=== PATIENT | female | born 1960 | race Caucasian/White ===

== ENCOUNTER 2018-12-11 23:48 | Emergency (ER) | payer OTHER ==
[~2018-12-11] VITALS: Ht 160 cm; Wt 50.0 kg
[2018-12-12] MEDS ORDERED: LEVO50 PO (00:13)
[2018-12-12] MEDS ORDERED: NIFE30TA98 PO (00:13)
[2018-12-12] MEDS ORDERED: SEVEC800 PO (00:13)
[2018-12-12] MEDS ORDERED: TRAZ-252 PO (00:13)
[2018-12-12] MEDS ORDERED: ASPI-1182 PO (00:13)
[2018-12-12] MEDS ORDERED: LOPE1LIQ88 PO (00:13)
[2018-12-12] MEDS ORDERED: VITAD1000 PO (00:13)
[2018-12-12 00:24] LABS: GLUCOSE,POINT OF CARE 202 MG/DL (70-110)
[2018-12-12 00:50] LABS: BASOPHILS % (AUTO) 0.2 % (0.0-2.0); EOSINOPHILS % (AUTO) 0 % (1.0-6.0); HEMATOCRIT 31.5 % (36-46); HEMOGLOBIN 10.4 g/dL (12.0-16.0); LYMPHOCYTES # (AUTO) 0.5 K/uL (1.0-4.8); LYMPHOCYTES % (AUTO) 5.4 % (22.0-44.0); MEAN CORPUSCULAR HEMOGLOBIN 30.8 pg (26.0-34.0); MEAN CORPUSCULAR VOLUME 93 fL (80-100); MONOCYTES # (AUTO) 0.5 K/uL (0.1-1.0); MONOCYTES % (AUTO) 6.1 % (2.0-9.0); NEUTROPHILS # (AUTO) 7.6 K/uL (1.8-7.7); PLATELET COUNT (AUTO) 196 K/uL (150-450); RED BLOOD CELL COUNT(AUTO) 3.38 MIL/uL (4.00-5.20); RED CELL DISTRIBUTION WIDTH 18.6 % (11.5-14.5)
[2018-12-12 00:51] LABS: NEUTROPHILS % (AUTO) 88.3 % (40.0-70.0)
[2018-12-12 00:58] LABS: CALCIUM, TOTAL 9.2 mg/dL (8.8-10.5); CREATININE 4.81 mg/dL (0.60-1.30); POTASSIUM 3.8 mmol/L (3.5-5.1)
[2018-12-12 01:04] LABS: ALBUMIN 3.3 g/dL (3.4-5.0); BILIRUBIN,TOTAL 0.7 mg/dL (0.1-1.0); TOTAL PROTEIN, SERUM 7.8 g/dL (6.4-8.2)
[2018-12-12 01:11] LABS: INFLUENZA TYPE A NEGATIVE FOR TYPE A (NEGATIVE); INFLUENZA TYPE B NEGATIVE FOR TYPE B (NEGATIVE)
[2018-12-12 01:38] LABS: PROTHROMBIN TIME 10.7 SEC (9.4-11.6)
[2018-12-12] MEDS ORDERED: LEVOFLOXACIN 250 MG TABLET PO ONE (03:00)
[2018-12-12 03:09] VITALS: BP 139/59
== END 2018-12-12 03:15 | disposition home or self-care (01) ==
LOC: EMS 23:51
DX: J18.9 Pneumonia, unspecified organism (principal); E11.9 Type 2 diabetes mellitus without complications; Z79.82 Long term (current) use of aspirin; Z79.899 Other long term (current) drug therapy
CPT/HCPCS: 87804; 93005